=== PATIENT | female | born 1945 | race Caucasian/White ===

== ENCOUNTER 2016-07-16 12:30 | Inpatient (IN) ==
[2016-07-16] MEDS ORDERED: Ondansetron 4 MG/2 ML VIAL IVP ONE (12:47)
--- NOTE | 2016-07-16 12:47 | Emergency Department Note ---
Disposition Clinical Impression: Hyponatremia, Atypical chest pain Intractable vomiting Qualifiers: Vomiting type: unspecified Nausea presence: with nausea Qualified Code(s): R11.2 - Nausea with vomiting, unspecified Disposition: Admitted As Inpatient Condition: Fair Referrals: Aidee May MD [Primary Care Provider] - Forms: ED Satisfaction Letter General Adult HPI - General Chief complaint: ED Headache Stated complaint: Headache nausea Time Seen by Provider: 07/16/16 12:40 Source: patient Mode of arrival: private vehicle Limitations: no limitations Nursing Notes Reviewed: Yes Vital Signs Reviewed: Yes - History of Present Illness HPI Narrative: Patient reports that she is frontal headache over the last 3 days. She states the headache was worse this morning and she checked her blood pressure and found it to be 156/106. She states during this time she developed some anterior chest pain or pressure and she took 2 nitroglycerin to see if it help with her blood pressure and her chest pain. She did she did have similar chest pain for about 30 minutes but she has had none after her second nitroglycerin. She did not have associated diaphoresis, shortness of breath, jaw or arm pain. She relates her main problem now with severe nausea with persistent dry heaving. She denies any difficulty with her vision nor any extremity numbness, tingling or weakness. She has not had altered speech or mentation. She denies any type of injury. She denies episodes like this in the past. Onset (ago): day(s) (3) Location: head Radiation: non-radiation Pain Severity: moderate Pain Scale: 7 Quality: aching, dull Consistency: constant, Worsening Improves with: nothing Worsens with: nothing Associated symptoms: Reports: chest pain, headaches, loss of appetite, malaise, nausea/vomiting, weakness. Denies: confusion, cough, diaphoresis, fever/chills , rash, seizure, shortness of breath, syncope Treatments Prior to Arrival: other (Nitroglycerin) - Related Data Home Medications Medication Instructions Recorded Confirmed Alprazolam [Xanax 0.25 MG Tablet] 0.25 mg PO BID 05/31/15 02/25/16 Diltiazem HCl [Cardizem LA] 240 mg PO DAILY 05/31/15 02/25/16 FLUoxetine HCl [Prozac] 20 mg PO DAILY 05/31/15 02/25/16 Levothyroxine [Synthroid] 25 mcg PO 0630 05/31/15 02/25/16 Magnesium Oxide [Mag-Ox] 400 mg PO BID 05/31/15 02/25/16 Metoprolol [Lopressor] 50 mg PO BID 05/31/15 02/25/16 Multivit-Min/FA/Lycopen/Lutein 1 each PO DAILY 05/31/15 02/25/16 [Centrum Silver Tablet] Nitroglycerin [Nitrostat] 0.4 mg SL DAILY PRN 05/31/15 02/25/16 Rivaroxaban [Xarelto] 15 mg PO 1700 05/31/15 02/25/16 Zolpidem [Ambien] 10 mg PO HS PRN 05/31/15 02/25/16 Furosemide [Lasix] 20 mg PO DAILY 08/16/15 02/25/16 Ascorbic Acid [Vitamin C] 100 mg PO 05/20/16 05/20/16 BuPROPion SR (12 HR) [Wellbutrin 150 mg PO DAILY 07/16/16 07/16/16 SR] Ciprofloxacin [Cipro] 500 mg PO BID 07/16/16 07/16/16 Previous Rx's Medication Instructions Recorded Azithromycin [Zithromax] 1 applic PO DAILY #6 tablet 05/20/16 Allergies Allergy/AdvReac Type Severity Reaction Status Date / Time metoclopramide [From Reglan] Allergy See Verified 05/20/16 13:01 Comments All systems ED: reviewed and negative except as stated. Past Medical History - Past Medical History Attestation: Yes The following information was validated with the patient. Source: patient, old records reviewed, nursing notes reviewed Medical history: Reports: atrial fibrillation, GERD, hypertension, renal disease , thyroid disease Surgical history: Reports: cholecystectomy, hysterectomy, pacemaker/AICD ( multiple generator changes. AICD/PPM. ), other (AV bree ablation, gastric bypass) Psychiatric history: Reports: anxiety - Social History Smoking Status: Never smoker Smokeless Tobacco Status: No Alcohol use: Reports: none Drug use: Reports: none Physical Exam - General Limitations: physical limitation General appearance: alert, in distress - Head Head exam: atraumatic, normocephalic, normal inspection - Eye Eye exam: Present: normal appearance, PERRL, EOMI. Absent: scleral icterus, conjunctival injection - ENT ENT exam: normal exam, normal oropharynx, mucous membranes moist - Neck Neck exam: Present: normal inspection, full ROM, trachea midline. Absent: tenderness, meningismus - Chest Chest inspection: Present: normal inspection, symmetric chest wall rise. Absent : tenderness - Respiratory Respiratory exam: Present: normal lung sounds bilaterally. Absent: respiratory distress, wheezes, prolonged expiratory phase - Cardiovascular Cardiovascular exam: Present: regular rate, normal rhythm, normal heart sounds. Absent: tachycardia - Abdominal Exam Abdominal exam: Present: soft, Non-Tender, normal bowel sounds. Absent: tenderness, distention, guarding, rebound, rigidity - Extremities Exam Extremities exam: Present: normal inspection, full ROM, normal capillary refill. Absent: tenderness, pedal edema, calf tenderness - Expanded Lower Extremity Exam Neurovascular/Tendon exam: Present: normal capillary refill. Absent: motor deficit, sensory deficit, tendon deficit Gait: observed and normal - Back Exam Back exam: Present: normal inspection, full ROM. Absent: tenderness - Neurological Exam Neurological exam: Present: alert, oriented X3, CN II-XII intact, normal gait, reflexes normal. Absent: motor sensory deficit - Psychiatric Psychiatric exam: Present: agitated, anxious - Skin Skin exam: Present: warm, dry, intact, normal color. Absent: diaphoresis, pallor Course Course Narrative: 1330: With return of lab demonstrating significant hyponatremia, care has been discussed with Dr. Crespo continued hydration and following of her electrolytes. He is agreeable with observation at this facility, providing her troponin is negative. Vital Signs Pulse Rate 71 07/16/16 12:32 Respiratory Rate 20 07/16/16 12:32 Blood Pressure 143/83 07/16/16 12:32 O2 Sat by Pulse Oximetry 100 07/16/16 12:32 Pulse Rate 71 07/16/16 12:32 Respiratory Rate 20 07/16/16 12:32 Blood Pressure 143/83 07/16/16 12:32 O2 Sat by Pulse Oximetry 100 07/16/16 12:32 Oxygen Delivery Oxygen Delivery Room Air Medical Decision Making - Medical Records Medical records reviewed: Yes I reviewed the patient's medical records. - Lab Data Lab results reviewed: Yes I reviewed the patient's lab results. Result diagrams: 07/16/16 13:05 07/16/16 13:05 Lab Results 07/16/16 07/16/16 07/16/16 Range/Units 13:05 13:05 13:05 WBC 10.0 (4.3-11.1) K/mcL RBC 4.34 (3.82-4.97) M/mcL Hgb 13.2 (11.5-15.4) g/dL Hct 36.3 (35.3-44.9) % MCV 83.6 (83.0-100.0) fL MCH 30.4 (28.0-33.3) pg MCHC 36.4 H (31.6-35.5) g/dL RDW 15.0 H (11.5-14.5) % Plt Count 216 (140-400) K/mcL MPV 9.0 L (9.4-12.4) fL Immature Gran % 0.3 (0-4) % Seg Neutrophils % 80.6 % Lymphocytes % 13.0 % Monocytes % 5.6 % Eosinophils % 0.1 % Basophils % 0.4 % Neutrophils # 8.1 (1.6-8.9) K/mcL Lymphocytes # 1.3 (0.6-4.6) K/mcL Monocytes # 0.6 (0.0-1.3) K/mcL Eosinophils # 0.0 (0.0-0.6) K/mcL Basophils # 0.0 (0.0-0.2) K/mcL PT 24.4 H (9.4-12.1) Seconds INR 2.2 APTT 35.3 (26.0-36.0) Seconds Sodium (136-145) mEq/L Potassium (3.5-4.5) mEq/L Chloride (98-109) mEq/L Carbon Dioxide (19-29) mEq/L BUN (7-20) mg/dL Creatinine (0.57-1.11) mg/dL Est GFR ( Amer) (> 60) Est GFR (Non-Af Amer) (> 60) BUN/Creatinine Ratio (6-26) Glucose (70-99) mg/dL Calculated Osmolality (280-300) Calcium (8.6-10.8) mg/dL Troponin I (0-0.03) ng/mL B-Natriuretic Peptide 397 H (0-100) pg/mL 07/16/16 07/16/16 Range/Units 13:05 13:05 WBC (4.3-11.1) K/mcL RBC (3.82-4.97) M/mcL Hgb (11.5-15.4) g/dL Hct (35.3-44.9) % MCV (83.0-100.0) fL MCH (28.0-33.3) pg MCHC (31.6-35.5) g/dL RDW (11.5-14.5) % Plt Count (140-400) K/mcL MPV (9.4-12.4) fL Immature Gran % (0-4) % Seg Neutrophils % % Lymphocytes % % Monocytes % % Eosinophils % % Basophils % % Neutrophils # (1.6-8.9) K/mcL Lymphocytes # (0.6-4.6) K/mcL Monocytes # (0.0-1.3) K/mcL Eosinophils # (0.0-0.6) K/mcL Basophils # (0.0-0.2) K/mcL PT (9.4-12.1) Seconds INR APTT (26.0-36.0) Seconds Sodium 116 L* (136-145) mEq/L Potassium 3.8 (3.5-4.5) mEq/L Chloride 83 L (98-109) mEq/L Carbon Dioxide 20 (19-29) mEq/L BUN 16 (7-20) mg/dL Creatinine 1.12 H (0.57-1.11) mg/dL Est GFR ( Amer) 58 L (> 60) Est GFR (Non-Af Amer) 48 L (> 60) BUN/Creatinine Ratio 14 (6-26) Glucose 128 H (70-99) mg/dL Calculated Osmolality 245 L (280-300) Calcium 9.0 (8.6-10.8) mg/dL Troponin I 0.01 (0-0.03) ng/mL B-Natriuretic Peptide (0-100) pg/mL - Radiology Data Radiology results reviewed: Yes I reviewed the patient's radiology results. Single view chest x-ray is performed. This does not demonstrate evidence for infiltrate, effusion, pneumothorax, foreign body or heart failure. The cardiac silhouette is normal. I do not see abnormality to the osseous structures of the chest. This is on my interpretation. CT head is performed. This is reviewed on bone and soft tissue windows. There is no evidence for acute intracranial bleed, shift, mass or edema. Mastoids and sinuses appear normal. There is no fracture evident. This is on my interpretation. Impressions Chest X-Ray 07/16/16 12:47 IMPRESSION: Mild cardiomegaly. No acute cardiopulmonary process. D/ / 07/16/2016 13:51:49 Pino March MD / Nori Abraham Interpreting Provider: Pino March MD Head CT 07/16/16 12:48 IMPRESSION: No acute intracranial abnormality. D/ / Jay Ayala MD / Jay Ayala MD Interpreting Provider: Jay Ayala MD - EKG Data EKG #1 EKG attestation: Yes I reviewed and interpreted this EKG. EKG shows normal: axis, intervals, ST-T waves Rate: normal (69) Interpretation: no acute changes (Ventricularly paced rhythm.)
[2016-07-16] MEDS ORDERED: 0.9 % Sodium Chloride 1,000 ML IVC SCH (13:00)
[2016-07-16 13:12] LABS: Basophils % 0.4 %; Eosinophils % 0.1 %; Hematocrit 36.3 % (35.3-44.9); Hemoglobin 13.2 g/dL (11.5-15.4); Immature Granulocytes % 0.3 % (0-4); Lymphocytes # 1.3 K/mcL (0.6-4.6); Mean Corpuscular HGB Conc 36.4 g/dL (31.6-35.5); Mean Corpuscular Hemoglobin 30.4 pg (28.0-33.3); Mean Corpuscular Volume 83.6 fL (83.0-100.0); Monocytes # 0.6 K/mcL (0.0-1.3); Monocytes % 5.6 %; Neutrophils # 8.1 K/mcL (1.6-8.9); Platelet Count 216 K/mcL (140-400); Red Blood Count 4.34 M/mcL (3.82-4.97); Segmented Neutrophils % 80.6 %
[2016-07-16 13:20] LABS: INR 2.2; Prothrombin Time 24.4 Seconds (9.4-12.1)
[2016-07-16 13:23] LABS: Activated Partial Thrombo Time 35.3 Seconds (26.0-36.0)
[2016-07-16 13:28] LABS: Potassium 3.8 mEq/L (3.5-4.5)
[2016-07-16] MEDS ORDERED: *HR* LORazepam 2 MG/ML VIAL IVP ONE (13:35)
[2016-07-16] MEDS ORDERED: *HR* Promethazine 25 MG/ML VIAL IVP ONE (13:35)
--- NOTE | 2016-07-16 13:39 | Electrocardiograph Report ---
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
[2016-07-16] MEDS ORDERED: Ondansetron 4 MG/2 ML VIAL IVP PRN ×2 (15:52→20:35)
[2016-07-16] MEDS ORDERED: *HR* Morphine 2 MG/ML SYRINGE IVP PRN (15:52)
[2016-07-16] MEDS ORDERED: *HR* Promethazine 25 MG/ML VIAL IVP PRN (15:52)
[2016-07-16] MEDS ORDERED: MOM Conc 10 ML UD.LIQ PO PRN (15:52)
[2016-07-16] MEDS ORDERED: Naloxone 0.4 MG/ML INJ IVP PRN (15:52)
[2016-07-16] MEDS ORDERED: *HR* LORazepam 2 MG/ML VIAL IVP PRN (15:52)
[2016-07-16] MEDS ORDERED: Acetaminophen 325 MG TABLET PO PRN (15:52)
[2016-07-16] MEDS ORDERED: *HR* Rivaroxaban 15 MG TABLET PO SCH (17:00)
[2016-07-16] MEDS: 0.9 % Sodium Chloride 1,000 ML IVC SCH (17:27)
--- NOTE | 2016-07-16 20:24 | Internal Med History&Physical ---
Date of Encounter: 07/16/16 Time of Encounter: 19:55 Assessment and Plan (1) Hyponatremia Current visit: Yes Status: Acute She reports drinking approximately 128 ounces of water daily. I will check UA and urine and serum osmolality. Continue IV normal saline and recheck sodium in a.m. (2) CKD (chronic kidney disease) stage 3, GFR 30-59 ml/min Current visit: No Status: Chronic We will monitor renal indices. (3) Hypothyroid Current visit: No Status: Chronic TSH was normal at 2.150 on 02/26/2016. Continue present dose Synthroid. Qualifiers: Hypothyroidism type: unspecified Qualified Code(s): E03.9 - Hypothyroidism , unspecified (4) Hypertension Current visit: No Status: Chronic The pressure has significantly improved since her BP reading at home. We will continue present dose metoprolol and diltiazem for now and monitor Qualifiers: Hypertension type: essential hypertension Qualified Code(s): I10 - Essential (primary) hypertension (5) Atrial fibrillation Current visit: No Status: Acute Continue Xarelto Qualifiers: Atrial fibrillation type: paroxysmal Qualified Code(s): I48.0 - Paroxysmal atrial fibrillation Internal Medicine - H&P: HPI Chief complaint: Headache, chest pain, hyponatremia Admitted From: Home Plans for Post Hospital Care: Home History of present illness: Ms. Taveras is a 71 year old female who came to emergency room stating she had worsening headache that began 3 days earlier. She checked her blood pressure at home and found it elevated at 156/106. She developed some dry heaves followed by some discomfort in her chest. She took 2 nitroglycerin pills which essentially relieved her chest pain but caused her headache to worsen. She came to emergency room and was evaluated and found to have hyponatremia with sodium 116. She was admitted to [facility] floor for ongoing care needs. She was hospitalized last at [facility] February 2015 with back pain. Her cardiovascular history is significant for hypertension. She states usual blood pressure readings at home are rocks moderately 135/95. She claims she had CO in the past. She has paroxysmal defibrillation and reports for ablation procedures in the past. She takes Xarelto for atrial fibrillation. She reports 4 pacemakers placed since 1997 and states she had ICD pacemaker replacement May 2015 at [facility]. She denies DVT or pulmonary embolus. Past Med Surg Social Fam HX - Past Medical History Medical history: atrial fibrillation, GERD, hypertension, renal disease, thyroid disease Psychiatric history: anxiety - Past Surgical History Surgical History: cholecystectomy, hysterectomy, pacemaker/AICD, other - Social History Smoking Status: Never smoker Smokeless Tobacco Status: No Alcohol use: none Drug use: none - Family History Mother Living Status: Father Living Status: Internal Medicine - H&P: Meds Alprazolam [Xanax 0.25 MG Tablet] 0.25 mg PO BID 05/31/15 [History] Diltiazem HCl [Cardizem LA] 240 mg PO DAILY 05/31/15 [History] FLUoxetine HCl [Prozac] 20 mg PO DAILY 05/31/15 [History] Levothyroxine [Synthroid] 25 mcg PO 0630 05/31/15 [History] Magnesium Oxide [Mag-Ox] 400 mg PO BID 05/31/15 [History] Metoprolol [Lopressor] 50 mg PO BID 05/31/15 [History] Multivit-Min/FA/Lycopen/Lutein [Centrum Silver Tablet] 1 each PO DAILY 05/31/15 [History] Nitroglycerin [Nitrostat] 0.4 mg SL DAILY PRN 05/31/15 [History] Rivaroxaban [Xarelto] 15 mg PO 1700 05/31/15 [History] Zolpidem [Ambien] 10 mg PO HS PRN 05/31/15 [History] Furosemide [Lasix] 20 mg PO DAILY 08/16/15 [History] Ascorbic Acid [Vitamin C] 100 mg PO 05/20/16 [History] Azithromycin [Zithromax] 1 applic PO DAILY #6 tablet 05/20/16 [Rx] BuPROPion SR (12 HR) [Wellbutrin SR] 150 mg PO DAILY 07/16/16 [History] Ciprofloxacin [Cipro] 500 mg PO BID 07/16/16 [History] Allergies metoclopramide [From Reglan] Allergy (Verified 05/20/16 13:01) See Comments All Systems PM: A 10-system review of systems was performed and is negative for pertinent findings except as documented above in the HPI. Review of systems: Gen.: Her weight has been stable the past few months Cardiovascular: As per history of present illness Respiratory: She is a lifelong nonsmoker and has known chronic lung disease GI: She has had cholecystectomy. She had pancreatitis on one occasion the past. She denies disorders of her liver. : She has CKD stage III. She does not follow with a wardrobe technician. She denies any kidney or bladder disorders. Neurologic: She claims she was told she had a stroke 2001 with no residual neurologic deficit. She denies seizures Endocrine: She has hypothyroidism but denies diabetes or hyperlipidemia Hematology/oncology: She has had iron deficiency anemia documented in the past but resolves after use of supplemental iron. She denies internal malignancies Psychiatric: She has anxiety and depression . She denies other mental health issues Musk skeletal: She denies DJD gout or other bone joint or muscle disorders. - Constitutional Vitals: Temp Pulse Resp BP Pulse Ox 98.1 F 71 16 109/74 95 07/16/16 17:27 07/16/16 17:27 07/16/16 17:27 07/16/16 17:27 07/16/16 17:27 Exam: Gen.: She is a well-developed well-nourished female who appears in no severe distress at present time. HEENT: Head is atraumatic and normocephalic. Eyes: EOMI. There is no scleral icterus. Mouth: Mucosa is moist. Neck: Supple and nontender. There is no thyromegaly or adenopathy noted. Heart: Regular with a 2/6 systolic murmur heard at the left sternal border. No gallops or ectopics are heard Lungs: Clear to auscultation in all ewing Abdomen: Soft and nontender. No masses or guarding are noted. Extremities: There is no cyanosis edema or clubbing noted. Dorsalis pedis and posttibial pulses are 1-2 over 2 bilaterally. Neurologic: Mental status: She is talkative and a good historian. Cranial nerves: Smile is symmetric. There appears to be slight flattening of the right nasolabial fold at rest. Forehead wrinkles bilaterally. Tongue protrudes midline. EOMI. Motor: There is no pronator drift. Cerebellar: Finger to nose is intact bilaterally. Skin: Warm and dry Internal Med - H&P Results - Labs CBC & Chem 7: 07/16/16 13:05 07/16/16 13:05 Labs: Cardiac Enzymes 07/16/16 Range/Units 18:58 Troponin I 0.01 (0-0.03) ng/mL
[2016-07-17] MEDS: 0.9 % Sodium Chloride 1,000 ML IVC SCH ×2 (01:16→10:01)
[2016-07-17 06:22] LABS: Basophils % 0.9 %; Eosinophils % 0.3 %; Hematocrit 33.4 % (35.3-44.9); Hemoglobin 11.7 g/dL (11.5-15.4); Immature Granulocytes % 0.3 % (0-4); Lymphocytes # 1.4 K/mcL (0.6-4.6); Lymphocytes % 39.7 %; Mean Corpuscular Hemoglobin 30.6 pg (28.0-33.3); Mean Corpuscular Volume 87.4 fL (83.0-100.0); Mean Platelet Volume 9.4 fL (9.4-12.4); Monocytes # 0.3 K/mcL (0.0-1.3); Monocytes % 9.3 %; Neutrophils # 1.7 K/mcL (1.6-8.9); Platelet Count 179 K/mcL (140-400); Red Blood Count 3.82 M/mcL (3.82-4.97); Red Cell Distribution Width 15.5 % (11.5-14.5); Segmented Neutrophils % 49.5 %
[2016-07-17 07:13] LABS: Bilirubin,Urine Negative (Negative); Blood,Urine Trace-lysed (Negative); Clarity,Urine Slightly Cloudy (Clear); Glucose,Urine (UA) Normal (Normal); Ketones,Urine Negative (Negative); Leukocyte Esterase,Urine Moderate (Negative); Nitrite,Urine Positive (Negative); Protein,Urine Negative (Neg-Trace); Urobilinogen,Urine Normal (Normal)
[2016-07-17 07:16] LABS: BUN/Creatinine Ratio 11 (6-26); Blood Urea Nitrogen 10 mg/dL (7-20); Calcium 8.4 mg/dL (8.6-10.8); Carbon Dioxide 23 mEq/L (19-29); Chloride 102 mEq/L (98-109); Glucose 91 mg/dL (70-99); Osmolality,Calculated 279 (280-300); Potassium 3.5 mEq/L (3.5-4.5); Sodium 135 mEq/L (136-145); eGFR For African Americans > 60 (> 60); eGFR For Non-African Americans > 60 (> 60)
[2016-07-17 07:18] LABS: Color,Urine Light Yellow (Yellow)
[2016-07-17 07:35] VITALS: BP 114/76
[2016-07-17] MEDS ORDERED: BuPROPion SR (12 HR) 150 MG TABLET PO SCH (09:00)
[2016-07-17] MEDS ORDERED: FLUoxetine 20 MG CAPSULE PO SCH (09:00)
[2016-07-17] MEDS ORDERED: Diltiazem CD (24hr) 240 MG CAPSULE PO SCH (09:00)
--- NOTE | 2016-07-17 10:43 | Discharge Summary ---
Date of Encounter: 07/17/16 Time of Encounter: 10:30 - Discharge Diagnosis (1) Hyponatremia Priority: Primary Status: Acute (2) CKD (chronic kidney disease) stage 3, GFR 30-59 ml/min Priority: Secondary Status: Chronic (3) Hypothyroid Priority: Secondary Status: Chronic Qualifiers: Hypothyroidism type: unspecified Qualified Code(s): E03.9 - Hypothyroidism , unspecified (4) Hypertension Priority: Secondary Status: Chronic Qualifiers: Hypertension type: essential hypertension Qualified Code(s): I10 - Essential (primary) hypertension (5) Atrial fibrillation Priority: Secondary Status: Acute Qualifiers: Atrial fibrillation type: paroxysmal Qualified Code(s): I48.0 - Paroxysmal atrial fibrillation - Discharge Medications Prescriptions: Sulfamethoxazole/Trimeth DS [Bactrim DS] 1 each PO BID #6 tablet Home Medications: Alprazolam [Xanax 0.25 MG Tablet] 0.25 mg PO BID 05/31/15 [History] Diltiazem HCl [Cardizem LA] 240 mg PO DAILY 05/31/15 [History] FLUoxetine HCl [Prozac] 20 mg PO DAILY 05/31/15 [History] Levothyroxine [Synthroid] 25 mcg PO 0630 05/31/15 [History] Metoprolol [Lopressor] 50 mg PO BID 05/31/15 [History] Multivit-Min/FA/Lycopen/Lutein [Centrum Silver Tablet] 1 each PO DAILY 05/31/15 [History] Nitroglycerin [Nitrostat] 0.4 mg SL DAILY PRN 05/31/15 [History] Rivaroxaban [Xarelto] 15 mg PO 1700 05/31/15 [History] Zolpidem [Ambien] 10 mg PO HS PRN 05/31/15 [History] Ascorbic Acid [Vitamin C] 100 mg PO 05/20/16 [History] BuPROPion SR (12 HR) [Wellbutrin SR] 150 mg PO DAILY 07/16/16 [History] Sulfamethoxazole/Trimeth DS [Bactrim DS] 1 each PO BID #6 tablet 07/17/16 [Rx] Allergies/Adverse Reactions: Allergies metoclopramide [From Reglan] Allergy (Verified 05/20/16 13:01) See Comments Date of admission: 07/17/16 03:15 Primary care physician: Aidee Cook - Patient Status Disposition: Home, Self-Care Condition: Fair Functional capacity at discharge: independent ambulation Overall status at discharge: patient is progressing back to baseline - Discharge Instructions Follow Up With: Aidee May MD [Primary Care Provider] - 1 week - Diet and Activity Activity: resume usual activities as tolerated Diet: advance to your usual diet Hospital course: Ms. Taveras is a 71 year old female who came to emergency room stating she had worsening headache that began 3 days earlier. She checked her blood pressure at home and found it elevated at 156/106. She developed some dry heaves followed by some discomfort in her chest. She took 2 nitroglycerin pills which essentially relieved her chest pain but caused her headache to worsen. She came to emergency room and was evaluated and found to have hyponatremia with sodium 116. She was admitted to [facility] for ongoing care needs. Initial orders were written by the emergency room physician. I saw her on July 16 and performed a history and physical. She was given IV normal saline. Her Lasix was discontinued. Her sodium taras to 135 by the day of discharge. She had resolution of her chest pain and headaches. She felt back to her baseline when I saw her on July 17 wished to be discharged home. Her blood pressure remained at satisfactory level during hospitalization.. She will follow with her PCP Dr. May within 1 week. She will remain off Lasix and magnesium at discharge. A UA showed probable UTI and she was given Septra DS twice a day empirically for 3 days. - Time Spent with Patient Total time spent providing and/or coordinating discharge services: - Constitutional Vitals: Temp Pulse Resp BP Pulse Ox 98.2 F 70 18 114/76 97 07/17/16 07:34 07/17/16 07:34 07/17/16 07:34 07/17/16 07:34 07/17/16 07:34
== END 2016-07-17 12:20 | disposition home or self-care (01) | DRG 641 ==
LOC: INPPIK 12:30 → EMEROOPIK 12:30 → INPPIK 14:50
PROVIDERS: ADMIT Internal Medicine; ATTEND Internal Medicine